=== PATIENT | female | born 1995 | race Caucasian/White ===

== ENCOUNTER 2022-02-15 14:09 | Emergency (ER) | payer SELFPAY ==
[~2022-02-15] VITALS: Ht 157.5 cm; Wt 45.4 kg
--- NOTE | 2022-02-15 14:30 | NUR ---
SOFIA RA60 "Bystander called she was in sidewalk unresponsive pinpoint pupil Given 4mg Narcan 2IM and 2intranasal woke up +admits to Fentanyl use. on room air, connected to the monitor and pulse ox. kept comfortable, will continue to monitor accordingly.
--- NOTE | 2022-02-16 07:15 | NUR ---
PATIENT ASLEEP, EASILY AROUSABLE, AAOX3, BREATHING EVEN AND NON LABORED
--- NOTE | 2022-02-16 09:00 | NUR ---
PATIENT AMBULATED TO THE RESTROOM WITH STEADY GAIT
--- NOTE | 2022-02-16 09:30 | NUR ---
BREAKFAST PROVIDED, TOLERATED WELL
--- NOTE | 2022-02-16 10:35 | NUR ---
"SS Note: Pt. Is a 27-year-old female who does not demonstrate adequate insight to the reason for hospitalization. Per pt., she does not remember how she got to the hospital. Per EMR, pt. overdosed. Pt. was oriented x2-3, alert, and cooperative. During interview, pt. was capable of following directions and appeared unkempt. Pt.'s speech was at a normal rate and pt.'s mood was elevated. Pt. reported no hx of mental health, substance abuse, suicidal ideation, or homicidal ideation. Pt. denies auditory hallucinations, visual hallucinations, paranoia, or delusions. SW explored pt.'s living situation. Per pt., she has been homeless for 2 years. SW offered shelters; pt. denied. Pt. has no questions or concerns currently. Plan: SW provided available resources and pt. accepted. SW offered a custodial and suggested rehab, pt. refused. Upon discharge, per pt., she will return to back to streets. Resources Provided: [place] [facility]: SPA 2 | [facility] ArmondcProvider: [facility] Address: Confidential (call for location ) Population Served: Coed # of Beds: 57 SPA 4 | [facility] Provider: Home at Last Address: [address] [place] [address] # of Beds: 49 Population Served: Coed SPA 6 | [facility] Provider: Home at Last Address: [address] [place] [address] # of Beds: 49 Population Served: Coed [facility] Provider: Stiven RIVAS [facility]: [address] [facility] [address] # of Beds: 20 Population Served: Women NATALY Facility Provider: Home at Last Address: [address] [facility] [address] # of Beds: 30 Population Served: Women SPA 8 | [facility] Library Provider: Anthony Address: [address] [facility] [address] # of Beds: 65 Population Served: Coed Year-round shelters: [facility] [place] [address] [place] [address] ; [facility] [place] [address] [facility] [place] [address]; [facility] [address] [facility] [address] Winter Shelters: Jose Manuel Valles [place] Provider: [place] Address: [address] [place]. [place], [address] # of Beds: 47 Population Served: [facility] 6 | [facility] Anastacia Delvalle [place] Provider: Home at Last Address: [address], [address] # of Beds: 66 Population Served: [facility] [place] Provider: First to Serve Address: [address] [facility], [address] # of Beds: 56 Population Served: [facility] [place] Provider: SSCristal/ [facility] Address: [address] [facility], [address] # of Beds: 49 Population Served: [facility] 8 | [facility] Provider: First to Serve Address: [address] [facility], [address] # of Beds: 37 Population Served: [facility] Hygiene: [facility]: [address] [address] [place] ; [facility] [facility] [address] [facility] ; [facility] [address] Max Mclean . Food Resources: [place] [facility] at [facility]- [address] [place]; Meet Each Need with Dignity ([facility]) [address] [place]; [facility] Food [facility] [address] [facility]; [facility] [address] [facility] [place]. Mental Health resources provided: [facility] [address] [place] [address] ; [facility] [address] [facility] [address], [place] [address] ; [facility] [address] [place], [place] [phone] ; [facility] [address] [place], [place] [phone] Healthcare Clinics: [facility] [address] [facility], [address] [place]. [place] ; [facility] [address] [facility] [address] [place] [address]; [facility] [address] [facility]. [place] [phone] Counseling--Outpatient [facility] [address] [facility], [place] [address] (Specializes in in-depth psychotherapy for emotional distress: anxiety, depression, interpersonal conflicts, life transitions, childhood abuse) [facility] [address] [place] [address] (Assist with solving problem marital difficulties, separation & divorce, aging parents, & grief, chronic & terminal illness) [facility] [address] [place] [address] (Deal with loss & grief, anxiety, marital difficulties) Homebound/Mental Health Services [address], [address] [place], [place] [address] (Provide in-home mental services to people who are incapable of leaving their homes) [facility] Elder[facility] Senior Service/Resource Center [address] [place] [address] [facility] [address] [place], [place] [phone] PSYCHIATRIC OUTPATIENT SERVICES [facility] Partial Hospitalization and Intensive Outpatient Program (Managed Care and Gepp Only)[address] [address] [facility] [phone] [facility] Partial Hospitalization and Outpatient Imqqipo[address] [facility]. [address] [place], [place] [phone] MAX KOO [facility] [place] Bwv[address] [facility] [facility]. [address] [place], [place] [phone] [facility] Partial Hospitalization and Outpatient [id number] Emelita [facility] Max Koo, [phone] Substance Abuse resources provided included: [facility] Substance Abuse Self-Helpline ([facility]) ; CRI -HELP [address] [facility]. [place] [address] ; [facility] Treatment [place] [address] [facility] [address] ; [facility] Rehabilitation Program [address] [facility] [address] ; [facility] [address] [facility] [address] ; [facility] [address] [facility] [address] ; [facility] [place] [address] [facility] [address] ; [facility] Substance Abuse Helpline([facility] ; [facility] ; [facility] Emma; [facility] [place]; [facility] Max Herreraclarita; [place] [facility]; [place]; [place] [facility] [place] [facility] Philipp; Alcoholics Anonymous -SFV; Traci ; Marijuana Anonymous -SFV; Narcotics Anonymous [email or web address];"
[2022-02-16] MEDS ORDERED: NALO4SPR BNOSTRILS (12:38)
[2022-02-16 12:45] VITALS: BP 116/60
--- NOTE | 2022-02-16 12:45 | NUR ---
REFUSED PLACEMENT, SHE WANTS TO GO BACK TO THE STREET. DC WITH BUS TAP CARD
== END 2022-02-16 12:46 | disposition home or self-care (01) ==
LOC: EDBD 14:12 → ER 14:12
DX: T40.1X1A Poisoning by heroin, accidental (unintentional), initial encounter (principal); F17.200 Nicotine dependence, unspecified, uncomplicated; Z59.00 Homelessness unspecified; Y92.89 Other specified places as the place of occurrence of the external cause